=== PATIENT | female | born 1950 | race Caucasian/White ===

== ENCOUNTER 2017-02-02 17:59 | Emergency (ER) | payer OTHER ==
[~2017-02-02] VITALS: Ht 160 cm; Wt 101.2 kg
--- NOTE | ~2017-02-02 | EKG ---
[address] [address] ELECTROCARDIOGRAM REPORT Name: SCOOTER FOLEY KELLE [facility] [id number] Admission: 02/02/17 Attend Phys: Discharge: 02/02/17 Date of : 48 Report #: [id number] THIS REPORT FOR: //name// [facility] ED Test Date: 2017-02-02 Test Time: 18:59:00 Pat Name: SCOOTER FOLEY Department: Room: Gender: F Nursery Worker: THIAGO : 1950 Requested By: Vern Strickland Order Number: [id number] MD: Pierce Paez Measurements Intervals [place] Rate: 86 P: 12 MS: 199 QRS: -64 QRSD: 139 T: -16 QT: 435 QTc: 521 Interpretive Statements Sinus rhythm RBBB and LAFB Left ventricular hypertrophy No previous ECG available for comparison Electronically Signed On 02-03-2017 7:21:22 CDT by Pierce Paez [email or web address] <ELECTRONICALLY SIGNED> By: Pierce Paez MD, [facility] 02/03/17 0721 1859 1859 Pierce Paez MD, FACC /EPI
[~2017-02-02 17:59] MED LIST: ALEVE220 MG PO; BIOTIN2500 MCG PO; CENTRUM SILVER1 EAC4 PO; COZAAR 50 MG TA50 M2 PO; FLEXERIL PO; MOBIC15 MG PO; OMEPRAZOLE40 MG PO; PAXIL10 MG PO; PERCOCET 5-3251 EACH PO; SORIATANE25 MG PO; ZYRTEC10 MG PO
[2017-02-02 18:36] LABS: HEMATOCRIT 38.8 % (37.0-47.0); HEMOGLOBIN 13.3 gm/dL (12.0-15.0); MCH 32.7 pg (26.0-34.0); MCHC 34.2 g/dL (28.0-37.0); MCV 95.6 fL (80.0-100.0); PLATELET COUNT 349 thou/uL (150-400); RBC 4.06 mil/uL (4.20-5.00); WBC 8.8 thou/uL (4.0-11.0)
[2017-02-02 18:39] LABS: MANUAL DIFF YES
[2017-02-02 18:44] LABS: ANION GAP 11 mmol/L (7-16); BUN 14 mg/dL (7-18); CALCIUM 9.2 mg/dL (8.5-10.1); CHLORIDE 103 mmol/L (98-107); CO2 25 mmol/L (21-32); CREATININE 1.1 mg/dL (0.6-1.0); GLUCOSE 108 mg/dL (74-106); POTASSIUM 3.9 mmol/L (3.5-5.1); SODIUM 139 mmol/L (136-145)
[2017-02-02 18:56] LABS: NT-PRO BRAIN NAT PEPTIDE 478 pg/mL (<300); TROPONIN-I < 0.04 ng/mL (<0.04-0.07)
[2017-02-02 19:28] LABS: ABSOLUTE NEUTROPHILS 5.5 thou/uL (1.4-8.2); MYELOCYTES 1 %; TOTAL CELL COUNT 100
[2017-02-02 20:45] VITALS: BP 156/82
== END 2017-02-02 20:51 | disposition home or self-care (01) ==
LOC: ER 17:59
PROVIDERS: Nurse Practitioner
DX: R06.02 Shortness of breath (principal); F41.9 Anxiety disorder, unspecified; I10 Essential (primary) hypertension; J45.909 Unspecified asthma, uncomplicated; K21.9 Gastro-esophageal reflux disease without esophagitis; M19.90 Unspecified osteoarthritis, unspecified site; Z96.651 Presence of right artificial knee joint; Z90.710 Acquired absence of both cervix and uterus